=== PATIENT | female | born 1985 | race Caucasian/White ===

== ENCOUNTER 2020-11-14 16:43 | Inpatient (IN) | payer OTHER ==
[2020-11-14 17:26] VITALS: BMI 31.9
[2020-11-14] MEDS ORDERED: hydrALAZINE 20 MG/ML VIAL SLOW IVP PRN ×3 (17:44→22:04)
[2020-11-14 17:58] LABS: Amnisure Test RUPTURE DETECTED (No Rupture)
[2020-11-14 17:59] LABS: Amnisure Internal Control QC ACCEPTABLE (ACCEPTABLE)
[2020-11-14] MEDS ORDERED: Ondansetron PF 4 MG/2 ML Vial IVP PRN ×3 (18:02→22:04)
[2020-11-14] MEDS ORDERED: Famotidine/PF 20 mg/2ml Vial SLOW IVP PRN (18:02)
[2020-11-14] MEDS ORDERED: Bicitra 30 ML UDCUP PO PRN (18:02)
[2020-11-14] MEDS ORDERED: Promethazine HCl 25 MG/ML VIAL IM PRN ×3 (18:02→22:04)
--- NOTE | 2020-11-14 18:10 | HP ---
TIME OF EVALUATION: Roughly 1715. LOCATION: Triage B. CHIEF COMPLAINT: Possible spontaneous rupture of membranes at 36 weeks and 2 days with possible leakage of fluid first noted at around 12:30 noon today. This is a patient of Dr. Lubin. HISTORY OF PRESENT ILLNESS: In brief, this is a 35-year-old G2, P1, at 36 weeks and 2 days with an EDC of December 10, 2020 with a history of a previous x1 for "abruption at 36 weeks" (not otherwise specified) with the above complaint. She denies any vaginal bleeding and has good movement. On the way here, which she noted as she drove about an hour because [place] an hour [place]. She states she is having some lower abdominal "cramping" about 5-6 minutes apart. REVIEW OF SYSTEMS: GENERAL: No shortness of breath, fever, or chills. CHEST: No chest pain. RESPIRATORY: No acute cough noted on initial intake. ABDOMEN: Possible contractions/cramping, but no other GI issues. EXTREMITIES: No lower extremity swelling or pain. OB HISTORY: She is a G2, P1 with a previous and she desires a repeat and also desired prophylactic salpingectomy and those forms were apparently done in the office, but we do not have them here. ALLERGIES: NONE. PAST SURGICAL HISTORY: Includes that as well as wisdom teeth. PAST MEDICAL HISTORY: None. MEDICATIONS: Includes vitamins only. SOCIAL HISTORY: Negative for alcohol, tobacco, and drug use. PHYSICAL EXAMINATION: VITAL SIGNS: Blood pressure is 120/70. She is afebrile with a temperature of 98.7 and pulse is in the 80s. GENERAL: She is in no acute distress. Does not appear to be actively laboring. ABDOMEN: Gravid and size compatible with dates. PELVIC: Reveals no overt evidence of vaginal bleeding. Sterile speculum exam is being prepped to perform sterile speculum exam to rule out ROM. On monitor, monitor was evaluated with accelerations and moderate variability noted. heart tones are around 140s to 150s. There is no real contractions on tocodynamometer, but there is some uterine irritability. There was a questionable small area whether it was a decel or not for about a minute, but this is more likely compatible with maternal pulse as there was a positional change. ASSESSMENT: This is a 35-year-old G2, P1, at 36 weeks and 2 days prior C- section x1, patient of Dr. Marina Lubin, who desires repeat if that is necessary now and prophylactic tubal salpingectomy. PLAN: 1. Sterile speculum exam to rule out rupture. 2. AmniSure for ancillary testing. 3. The nonstress test appears reactive. 4. If she is ruptured, we will notify Dr. Lubin and likely proceed with a repeat and salpingectomy if the proper consents have been filled out. Job ID: [id number] [facility]
--- NOTE | 2020-11-14 18:10 | PDOC.LDPN ---
Labor & Delivery Progress Note - Subjective Subjective: comfortable - Objective Vital signs reviewed and normal: yes General: NAD, resting Uterine fundus: non tender FHT: category 1 (accels, no deccels, moderate variability) [place] contractions every: none Other exam findings: Sterile Spec exam with pooling of clear fluid, LOF with valsalva - Assessment (1) premature rupture of membranes (PPROM) with unknown onset of labor Code(s): O42.919 - PRETRM CHITRA ROM, UNSP TIME BETW RUPT AND ONST LABR, UNSP TRI Current Visit: Yes Status: Acute Plan: other (Admit for rLTCS) -: 35yo @ 36.2 presents for concern for PPROM #PPROM - ASHANTI 12/10/20 - LOF @ 1230 today with continue LOF - Cat 1 FHT, no ctx - Spec exam with pooling of clear fluid, cervical LOF with valsalva - Amnisure positive - Will notify PCP and admit for rLTCS. - GBS pending PCP: Amee VTE: SCDs Diet: NPO IVF: LR @125cc/hr Dispo: Notify PCP. Admit for PPROM in setting of h/o LTCS and plan for rLTCS. Consider steroids per PCP.
--- NOTE | 2020-11-14 18:14 | PDOC.BPN ---
- Brief Progress Note [facility]BG[facility] Preop Repeat CS Note: DX: Prior CS; 36 weeks PPROM; Desires repeat. SSE by Dr Torres with gross evidence of ROM at 36 weeks 1 day. also returned positive. I have reviewed the T trcing. Patient is a prior CS desires Repeat. She desired RR salpingectomy so I have texted securely Dr Lubin to see if she has those. For CS when able. Pedi at delivery. Ancef and Zmax periop. I have seen the patient at bedside. Plan reviewed.
[2020-11-14] MEDS ORDERED: Lactated Ringer's 1,000 ML IV SCH (18:15)
[2020-11-14] MEDS ORDERED: CEFAZOLIN 2 GM in Premix Bag 1 BAG IVPB SCH (18:15)
--- NOTE | 2020-11-14 18:25 | PDOC.BPN ---
- Brief Progress Note CS Delay: Anesthesia stated there is a Level I trauma in ED that is using our anesthesia staff. This patient here is stable and not in active labor. I discussed the anesthesia issue with the patient and her . Amee yadav
[2020-11-14] MEDS ORDERED: Bicitra 30 ML UDCUP ONE (18:30)
[2020-11-14 19:03] LABS: Amphetamine Not Detected (NotDetected); Barbiturates Screen Not Detected (NotDetected); Benzodiazepine Screen Not Detected (NotDetected); Cocaine Metabolite Screen Not Detected (NotDetected); Medtox Control Line Valid? VALID (VALID); Medtox Reader # READER 1; Methadone Not Detected (NotDetected); Methamphetamine Not Detected (NotDetected); Opiate Screen Not Detected (NotDetected); Oxycodone Screen Not Detected (NotDetected); Phencyclidine (PCP) Not Detected (NotDetected); THC/Cannabinoid Screen Not Detected (NotDetected); Tricyclic Screen Not Detected (NotDetected)
[2020-11-14 19:40] LABS: SARS-CoV-2 NAA Rapid Test Not Detected (NotDetected)
[2020-11-14 20:16] LABS: Hemoglobin 11.7 g/dL (12.0-16.0); Mean Corpuscular Hemoglobin 32.9 pg (27.0-31.0); Mean Corpuscular Volume 93.8 fL (78.0-98.0); Platelet Count 219 thou/uL (130-400); Red Blood Cell (RBC) Count 3.57 mill/uL (4.20-5.40); White Blood Cell (WBC) Count 14.9 thou/uL (4.8-10.8)
[2020-11-14 20:54] LABS: Syphilis Antibody Nonreactive (Nonreactive); Syphilis Antibody Index 0.02 S/CO (<1.00 Non-Reactive)
[2020-11-14] MEDS ORDERED: Morphine PF 10 MG/10 ML VIAL ONE (21:00)
[2020-11-14] MEDS ORDERED: PHENYLEPHRINE-NS 100 MCG/ML 10 ML SYRINGE ONE (21:01)
[2020-11-14] MEDS ORDERED: Ondansetron PF 4 MG/2 ML Vial ONE (21:01)
[2020-11-14] MEDS ORDERED: Oxytocin 10 UNITS/ML VIAL ONE (21:01)
[2020-11-14] MEDS ORDERED: diphenhydrAMINE 50 MG/ML VIAL IVP PRN (21:17)
[2020-11-14] MEDS ORDERED: Ondansetron HCl/PF 4 MG/2 ML Vial IVP PRN (21:17)
[2020-11-14] MEDS ORDERED: Naloxone HCl 0.4 mg/ml Vial IV PRN (21:17)
[2020-11-14] MEDS ORDERED: HYDROmorphone 2 MG/ML VIAL SLOW IVP PRN (21:17)
[2020-11-14] MEDS ORDERED: Meperidine HCl/PF 25 MG/ML VIAL SLOW IVP PRN (21:17)
[2020-11-14] MEDS ORDERED: L&D-Morphine 4 MG/ML VIAL SLOW IVP PRN (21:17)
[2020-11-14] MEDS ORDERED: Promethazine HCl 25 MG SUPP PR PRN (21:17)
[2020-11-14] MEDS ORDERED: Naloxone HCl 0.4 mg/ml Vial IVP PRN ×2 (21:17)
[2020-11-14] MEDS ORDERED: Midazolam HCl 2 mg/2 ml Vial ONE (21:19)
[2020-11-14] MEDS ORDERED: Fentanyl 100 MCG/2 ML VIAL ONE (21:24)
[2020-11-14] MEDS ORDERED: Ketorolac Tromethamine 30 MG/ML VIAL IVP SCH (21:30)
[2020-11-14] MEDS ORDERED: Communication Order-Pharmacy FS SCH (21:30)
[2020-11-14] MEDS ORDERED: HYDROcodone/Acetaminophen 5/325 mg Tablet PO PRN (22:04)
[2020-11-14] MEDS ORDERED: Lanolin Ointment 7 GM TUBE TOP PRN (22:04)
[2020-11-14] MEDS ORDERED: Adacel (T-DAP) 0.5 ML SYRINGE IM ONE (22:04)
[2020-11-14] MEDS ORDERED: diphenhydrAMINE 25 MG CAP PO PRN (22:04)
--- NOTE | 2020-11-14 22:09 | PDOC.OPDEL ---
OB Operative/Delivery Note Delivery Dr/Surgeon: Amee Assist: Brian Pre-Delivery Diagnosis: ruptured membrane Procedure/Post Delivery Dx: other (Bilateral risk reduction salpingectomy) Weeks gestation: 36 Anesthesia: spinal - Findings A Sex: male Weight: 6 lb 7.705 oz - 1 min: 8 - 5 min: 8 - Additional Findings/Plan Placenta delivered: manual removal findings: low transverse hysterotomy without extension, normal uterus, normal tubes, normal ovaries, other (Normal bilateral fallopian tubes, ovaries, uterus.) Estimated blood loss: 240ml qbl Post delivery plan: routine recovery
[2020-11-14] MEDS ORDERED: Ketorolac Tromethamine 30 MG/ML VIAL ONE (22:36)
[2020-11-14] MEDS: Ketorolac Tromethamine 30 MG/ML VIAL IVP PRN (22:41)
[2020-11-14 22:49] LABS: HBSAg Index 0.28 S/CO (0-0.99); Hep B Surf Ag Non-Reactive S/CO (NonReactive)
--- NOTE | 2020-11-14 23:09 | OP ---
DATE OF PROCEDURE: 11/14/2020 PREOPERATIVE DIAGNOSES: 1. A 35-year-old white female, G2, P1, at 36 weeks' gestation. 2. Prior section. 3. Spontaneous rupture of membranes. 4. Family history of ovarian cancer. 5. Desires risk reduction salpingectomy due to family history. POSTOPERATIVE DIAGNOSES: 1. A 35-year-old white female, G2, P1, at 36 weeks' gestation. 2. Prior section. 3. Spontaneous rupture of membranes. 4. Family history of ovarian cancer. 5. Desires risk reduction salpingectomy due to family history. PROCEDURES PERFORMED: 1. Repeat low transverse section without extension. 2. Bilateral wrist reduction salpingectomy. KNURLING MACHINE TENDER SURGEON: Cornelius Torres MD from [facility]. ANESTHESIA: Spinal block. QUANTITATIVE BLOOD LOSS: 240 mL. COMPLICATIONS: None. COUNTS: Correct x2. PATHOLOGY: Bilateral fallopian tubes. FINDINGS: 1. Normal-appearing bilateral fallopian tubes, ovaries, and uterus. 2. Clear amniotic fluid noted. 3. Vigorous male , Apgars 8 and 8, vertex presentation, weight 2940 g. DISPOSITION: Recovery room, stable. DESCRIPTION OF PROCEDURE: The patient previously received informed consent in regard to surgery. She was taken back to the operating room, where she received a spinal block without complications. She was placed in supine position, prepped and draped in usual sterile fashion. George catheter and SCDs had been placed. A Pfannenstiel incision was made through the previous scar site. This was carried down to the fascia. The fascia was nicked in the midline. Fascial incision was extended bilaterally with curved Hood scissors. The rectus fascia was then dissected superiorly and inferiorly off the rectus muscle bellies. The rectus muscle bellies were divided in the midline. Peritoneal cavity was entered. The peritoneal incision was extended. Bladder flap was developed in usual fashion with Metzenbaum scissors. Viet O retractor was then placed. A 2 cm hysterotomy incision was made in the lower uterine segment. This extended via finger fractionation, and the baby was delivered in the vertex presentation. Mouth and nares of the infant were bulb suctioned on the abdomen. The cord was doubly clamped and cut and the baby was handed to the pediatric team in attendance. Usual cord blood was obtained. Placenta was manually extracted. The uterus was curetted of any remaining placental fragments with a dry laparotomy sponge. Hysterotomy incision was inspected and noted to be without extension. The hysterotomy incision was closed with running locking #1 Monocryl sutures. Good hemostasis was confirmed. Next, attention was turned to the bilateral risk reduction salpingectomy. The right fallopian tube was identified. My child care center assistant director grasped an avascular portion of the tube and the mesosalpinx and made a window defect in this with Bovie cautery. Intervening segments of the tube were then tied off with free ties of 0 chromic suture and intervening tubal segments were then removed with Metzenbaum scissors removing the tube in total. Hemostasis was confirmed. This was carried out in likewise fashion on the patient's left fallopian tube, creating vascular pedicles and resecting the tube with Metzenbaum scissors. The pedicles were tied with free ties of 0 Vicryl and a suture stitch of 0 Vicryl at the end of the distal tube for added hemostasis in a [id number] technique. The pedicle sites again were inspected and noted to be hemostatic. The pelvis was irrigated and suctioned. Hysterotomy incision was noted to be hemostatic. Viet O retractor was then removed. Again, the hysterotomy incision was inspected. Hemostasis was confirmed. The rectus muscle bellies were inspected and noted to be hemostatic prior to fascial closure. The fascia was closed with 0 PDS suture x2 in running continuous fashion and subcutaneous tissue was irrigated and Bovie cauterized any areas of bleeding prior to skin closure with lynnette. The surgery was terminated. No anesthetic or surgical complications occurred. Job ID: [id number]
[2020-11-14] MEDS ORDERED: diphenhydrAMINE 50 MG/ML VIAL ONE (23:51)
[2020-11-14] MEDS ORDERED: Meperidine HCl/PF 25 MG/ML VIAL ONE (23:51)
[2020-11-15] MEDS: Ketorolac Tromethamine 30 MG/ML VIAL IVP PRN (04:34)
[2020-11-15] MEDS: Ibuprofen 800 MG TAB PO SCH ×3 (06:14→20:54)
[2020-11-15 06:24] LABS: Mean Corpuscular HGB CONC 34.1 g/dL (32.0-36.0); Mean Corpuscular Hemoglobin 32.1 pg (27.0-31.0); Mean Corpuscular Volume 94.1 fL (78.0-98.0); Mean Platelet Volume 9.5 fL (7.4-10.4); Platelet Count 196 thou/uL (130-400); Red Blood Cell (RBC) Count 3.42 mill/uL (4.20-5.40); White Blood Cell (WBC) Count 21.5 thou/uL (4.8-10.8)
--- NOTE | 2020-11-15 07:03 | PDOC.PP ---
Post Progress Note Post Day #: 1 Subjective: Doing well this morning. Tolerated PO last night without n/v. Moving all ext. Li in place. Passing flatus. Lochia slightly more than period. No concerns. Denies WILSON, vision changes, CP, SOB, fever/chills. Pain well-controlled. PO intake tolerated: yes Flatus: yes Ambulation: no Vital Signs (12 hours) Temp Pulse Resp BP Pulse Ox 11/15/20 04:50 98.6 F 74 18 116/67 11/15/20 01:45 98.2 F 74 18 99/55 L 95 11/15/20 00:45 98.1 F 70 18 117/64 95 Weight Weight 87.09 kg - Physical Examination General: NAD (resting comfortably in bed) Cardiovascular: no m/r/g, RRR Respiratory: clear to auscultation bilaterally Abdominal: + bowel sounds, no distention, appropriately TTP Fundus firm & at: above umbilicus Extremities: negative homans (B) (no edema) Skin: CS incision dry & intact (with dressing in place) Psychiatric: A&Ox3, normal affect Result Diagrams: 11/15/20 05:54 Additional Labs: Post Labs Hep Bs Antigen Non-Reactive S/CO (NonReactive) 11/14/20 19:48 Blood Type A POSITIVE 11/14/20 21:43 (1) premature rupture of membranes (PPROM) with unknown onset of labor Code(s): O42.919 - PRETRM CHITRA ROM, UNSP TIME BETW RUPT AND ONST LABR, UNSP TRI Status: Acute (2) Status post repeat low transverse section Code(s): Z98.891 - HISTORY OF UTERINE SCAR FROM PREVIOUS SURGERY Status: Acute - Assessment/Plan 35yo @ 36.2 presented for PPROM now s/p rLTCS POD#1 #PPROM, s/p rLTCS, POD#1 - Tolerated surgery well without complications - QBL 320 - Tolerating PO, pain well-controlled - Hb 11.7 -> 11 - UDS negative - Routine post-c/s care, will continue to advance diet, remove li, encourage ambulation and monitor - Anticipate d/c tomorrow pending clinical course. - GBS pending PCP: Amee VTE: SCDs Diet: Regular IVF: SL Dispo: s/p rLTCS POD#1. Routine post-c/s care. Anticipate discharge tomorrow pending clinical course. OBGYN: Doing well: Plan of care reviewed. Stable. Possible DC home tomorrow. Routine postop care from repeat CS at this point.
[2020-11-15] MEDS: Ferrous Sulfate 325 MG TAB PO SCH (08:26)
[2020-11-15] MEDS: Prenatal Vitamin 1 TAB PO SCH (10:22)
[2020-11-15] MEDS: Docusate Calcium (SURFAK) 240 MG CAP PO SCH ×2 (10:22→20:54)
[2020-11-15] MEDS: Ondansetron ODT 4 MG TAB PO PRN (22:05)
[2020-11-16] MEDS: Ibuprofen 800 MG TAB PO SCH ×3 (06:10→21:13)
[2020-11-16] MEDS: HYDROcodone/Acetaminophen 5/325 mg Tablet PO PRN ×2 (06:11→20:23)
--- NOTE | 2020-11-16 07:33 | PDOC.PP ---
Post Progress Note Post Day #: 2 Subjective: Tolerating her diet, ambulating, voiding. PO intake tolerated: yes Flatus: yes Ambulation: yes Vital Signs (12 hours) Temp Pulse Resp BP 11/16/20 05:10 97.9 F 75 18 133/72 11/16/20 00:15 97.7 F 69 16 105/56 L 11/15/20 20:50 98.2 F 72 16 112/62 Weight Weight 192 lb - Physical Examination Abdominal: + bowel sounds, lochia, no distention, appropriately TTP Result Diagrams: 11/15/20 05:54 Additional Labs: Post Labs Hep Bs Antigen Non-Reactive S/CO (NonReactive) 11/14/20 19:48 Blood Type A POSITIVE 11/14/20 21:43 - Assessment/Plan Post op day 2. Repeat c/s with bilateral salpingectomiesfor RRs. Doing well. Routine care. baby is in NICU. Getting off antibiotics today as long as cultures are negative.
[2020-11-16] MEDS: Ferrous Sulfate 325 MG TAB PO SCH (08:49)
[2020-11-16] MEDS: Docusate Calcium (SURFAK) 240 MG CAP PO SCH ×2 (11:14→21:13)
[2020-11-16] MEDS: Prenatal Vitamin 1 TAB PO SCH (11:14)
[2020-11-16] MEDS: Simethicone Chewable 80 MG TAB PO PRN (21:14)
[2020-11-17] MEDS: Ondansetron ODT 4 MG TAB PO PRN (03:04)
--- NOTE | 2020-11-17 07:46 | PDOC.PP ---
Post Progress Note Post Day #: 3 PO intake tolerated: yes Flatus: yes Ambulation: yes Vital Signs (12 hours) Temp Pulse Resp BP Pulse Ox 11/16/20 20:05 98.6 F 75 18 126/76 100 Weight Weight 192 lb - Physical Examination Abdominal: lochia, no distention, appropriately TTP Result Diagrams: 11/15/20 05:54 Additional Labs: Post Labs Hep Bs Antigen Non-Reactive S/CO (NonReactive) 11/14/20 19:48 Blood Type A POSITIVE 11/14/20 21:43 - Assessment/Plan Post op day 3 -doing well. d/c home lynnette out 11/23...
[2020-11-17] MEDS: Ibuprofen 800 MG TAB PO SCH (08:06)
[2020-11-17] MEDS: Docusate Calcium (SURFAK) 240 MG CAP PO SCH (08:06)
[2020-11-17] MEDS: Prenatal Vitamin 1 TAB PO SCH (08:06)
[2020-11-17] MEDS: Ferrous Sulfate 325 MG TAB PO SCH (08:07)
[2020-11-17 09:10] VITALS: BP 117/70; TEMP 97.7
[2020-11-17] MEDS: Simethicone Chewable 80 MG TAB PO PRN (09:50)
== END 2020-11-17 12:10 | disposition home or self-care (01) | DRG 785 ==
LOC: L&D/OP 16:43 → L&D 18:02 → 3SW 11-15 00:56
PROVIDERS: ADMIT Obstetrics & Gynecology; ATTEND Obstetrics & Gynecology
PROC: 10D00Z1 Extraction of Products of Conception, Low, Open Approach (ICD-10-PCS; principal; 2020-11-14)
PROC: 0UT70ZZ Resection of Bilateral Fallopian Tubes, Open Approach (ICD-10-PCS; 2020-11-14)
DX: O42.913 Preterm premature rupture of membranes, unspecified as to length of time between rupture and onset of labor, third trimester (principal); O34.211 Maternal care for low transverse scar from previous cesarean delivery; Z20.828 Contact with and (suspected) exposure to other viral communicable diseases; Z37.0 Single live birth; Z3A.36 36 weeks gestation of pregnancy
CPT/HCPCS: 36415; 51702; 80306; 84112; 85027; 86780; 86850; 86900; 86901; 87081; 87340; 88302; 99285; J0690; J1200; J1885; J2175; J2250; J2270; J2405; J3010; Q0162; U0002